=== PATIENT | male | born 1935 | race Two or more races ===

== ENCOUNTER 2018-03-26 19:43 | Inpatient (IN) | payer MEDICARE, OTHER ==
[~2018-03-26] VITALS: Ht 167.6 cm; Wt 76.7 kg
[~2018-03-26 19:43] MED LIST: ATOR10TA PO; VALS80TA2 PO
--- NOTE | 2018-03-26 20:05 | NUR ---
Note undone in EDM - 03/26/18 at 2028 by KARLA PT COMES FROM HOME, AMBULATED TO ER WITH STABLE GAIT. INDEPENDENT IN ALL FUNCTION GALLERY OR MUSEUM GUIDE. ABLE TO MAKE NEEDS KNOWN. RESPONSIVE TO VERBAL + TACTILE STIMULI. ABLE TO SPEAK IN COMPLETE SENTENCES WITH CLEAR CONCISE SPEECH. AAOX4. PT COMES TO ER W/ C/O HTN STARTING 0900 AND LASTING THROUGHOUT THE DAY, ADDITIONAL C/O DIZZINESS AND NAUSEA. PT'S NEPHEW AT BEDSIDE. PER PT STATEMENT, AT 0900 TODAY, PT STATES HIS BP WAS 150/87 AND HE FELT DIZZY, NAUSEATED, & FATIGUED. PT STATES HE TOOK DIOVAN 80 MG AT 1000. PT DID NOT REASSESS BP UNTIL 1800. PER PT, BP WAS 180/95 AT 1800. PT STATES HE FEELS DIZZY + NAUSEATED AT THIS TIME. RESPIRATIONS EVEN + UNLABORED. PT DENIES SOB/COUGH/CONGESTION. PT DENIES CHEST PAIN. PT ON MONITOR. SA02
[2018-03-26] MEDS ORDERED: ALFU10TA10 PO (20:06)
--- NOTE | 2018-03-26 20:25 | NUR ---
PT COMES FROM HOME, AMBULATED TO ER WITH STABLE GAIT. INDEPENDENT IN ALL FUNCTION [employer]ETING. ABLE TO MAKE NEEDS KNOWN. RESPONSIVE TO VERBAL + TACTILE STIMULI. ABLE TO SPEAK IN COMPLETE SENTENCES WITH CLEAR CONCISE SPEECH. AAOX4. PT COMES TO ER W/ C/O HTN STARTING 0900 AND LASTING THROUGHOUT THE DAY, ADDITIONAL C/O DIZZINESS AND NAUSEA. PT'S NEPHEW AT BEDSIDE. PER PT STATEMENT, AT 0900 TODAY, PT STATES HIS BP WAS 150/87 AND HE FELT DIZZY, NAUSEATED, & FATIGUED. PT STATES HE TOOK DIOVAN 80 MG AT 1000. PT DID NOT REASSESS BP UNTIL 1800. PER PT, BP WAS 180/95 AT 1800. AT THIS TIME, PT TOOK ANOTHER DIOVAN 80MG. PT STATES HE CONTINUES TO FEEL DIZZY + NAUSEATED UPON ARRIVAL TO THE ER. NO EPISODES OF VOMITING PRESENT THROUGHOUT THE DAY. PT COMES INTO ER FOR FURTHER EVALUATION. BP AT ARRIVAL IS 176/77. RESPIRATIONS EVEN + UNLABORED.NO S/S OF SOB/CONGESTION NOTED. PT STATES HE HAS NOT HAD CHEST PAIN/SOB WITH THIS COMPLAINT. PT PLACED ON RADIO ENGINEER WITH NSR NOTED. HR @ 60. NO C/O HEADACHE, VISUAL DISTURBANCE, DIPLOPIA AT THIS TIME. NO DIFFICULTY WITH SPEECH NOTED. NO GI/ DISTRESS. PATIENT PLACED IN BED, WHEELS LOCKED, BED IN LOWEST POSITION. SIDERAILS UP X 2. CALL LIGHT IS WITHIN REACH. ALL PATIENT NEEDS ATTENDED AND MET. VISITOR REMAINS AT BEDSIDE.
[2018-03-26] MEDS ORDERED: IV NORMAL SALINE 1000 ML BAG IV ONE (20:30)
[2018-03-26 20:53] LABS: BASOPHILS % (AUTO) 0.6 % (0.0-2.0); EOSINOPHILS # (AUTO) 0.1 K/uL (0.0-0.7); EOSINOPHILS % (AUTO) 1.3 % (0.0-7.0); HEMATOCRIT 40.3 % (36.7-47.1); HEMOGLOBIN 13.8 g/dL (12.5-16.3); LYMPHOCYTES # (AUTO) 1.1 K/uL (20.0-40.0); LYMPHOCYTES % (AUTO) 21.2 % (20.5-51.5); MEAN CORPUSCULAR HEMOGLOBIN 31.8 uug (23.8-33.4); MEAN CORPUSCULAR HGB CONC 34 g/dL (32.5-36.3); MEAN CORPUSCULAR VOLUME 92.8 fL (73.0-96.2); MONOCYTES # (AUTO) 0.3 K/uL (2.0-10.0); MONOCYTES % (AUTO) 5.8 % (0.0-11.0); NEUTROPHILS # (AUTO) 3.7 K/uL (1.8-8.9); NEUTROPHILS % (AUTO) 71.1 % (38.5-71.5); PLATELET COUNT (AUTO) 154 K/uL (152-348); RED BLOOD CELL COUNT(AUTO) 4.34 MIL/uL (4.06-5.63); WHITE BLOOD COUNT (AUTO) 5.2 K/uL (3.6-10.2)
[2018-03-26 21:00] LABS: CARBON DIOXIDE 26 mmol/L (21-32); CHLORIDE 102 mmol/L (98-107); CREATININE 1.1 mg/dL (0.6-1.3); GLUCOSE 112 mg/dL (74-106); UREA NITROGEN, BLOOD 14 mg/dL (7-18)
[2018-03-26] MEDS ORDERED: SWABABLE VALVE TRANSFER SET EA MC ONE (21:07)
[2018-03-26] MEDS ORDERED: NORMAL SALINE FLUSH 10 ML DISP.SYRIN ONE (21:07)
[2018-03-26] MEDS ORDERED: IOHEXOL 350 100 ML INFUS..BTL ONE (21:07)
--- NOTE | 2018-03-26 21:08 | NUR ---
consent for CT complete, placed in patient chart. patient in bed, no acute distress noted. VSS. Respirations even and unlabored. No c/o chest pain at this time.
[2018-03-26 21:12] LABS: ALANINE AMINOTRANSFERASE 36 U/L (16-63); ALKALINE PHOSPHATASE 83 U/L (50-136); ASPARTATE AMINOTRANSFERASE 28 U/L (15-37); BILIRUBIN,DIRECT 0.1 mg/dL (0.0-0.2); BILIRUBIN,TOTAL 0.5 mg/dL (0.2-1.0); TOTAL PROTEIN, SERUM 6.8 g/dL (6.4-8.2)
--- NOTE | 2018-03-26 21:28 | NUR ---
CALLED CLOSING MANAGER. PT CLEARED FOR CTA. PT RESTING IN BED. RESPIRATIONS EVEN + UNLABORED. NO DISTRESS NOTED.
--- NOTE | 2018-03-26 21:35 | NUR ---
PT TAKEN TO CT. ACCOMPANIED BY TRANSPORTER AND NEPHEW. NO ACUTE DISTRESS
[2018-03-26] MEDS ORDERED: IV NORMAL SALINE 100 ML ONE (21:53)
--- NOTE | 2018-03-26 22:17 | NUR ---
PT BACK FROM CT SCAN AT THIS TIME. NO ACUTE DISTRESS NOTED. PT ON ELEMENTARY READING TUTOR. RESPIRATIONS EVEN + UNLABORED. SA02 96% RA. NEPHEW AT BEDSIDE.
--- NOTE | 2018-03-26 22:25 | NUR ---
Patient ambulated to restroom with stable gait. no acute distress noted. vSS
--- NOTE | 2018-03-26 22:29 | NUR ---
KELLY BAILEY AT BEDSIDE FOR UPDATE.
--- NOTE | 2018-03-26 22:44 | NUR ---
PT PENDING ADMISSION TO TELEMETRY UNIT. PT RESTING COMFORTABLY IN BED. VSS.
--- NOTE | 2018-03-26 23:00 | NUR ---
Belongings list complete and placed in patient chart.
--- NOTE | 2018-03-27 00:09 | NUR ---
ER on phone with Vish Overton NP. Patient admitted to telemetry, Room 214. Dx: Ataxia. Family at bedside aware of patient plan of care. Belongings list complete. VSS.
--- NOTE | 2018-03-27 00:13 | NUR ---
Report given to Karthik LAUREN on telemetry.
[2018-03-27 00:35] VITALS: BP 144/51
[2018-03-27] MEDS ORDERED: ACETAMINOPHEN 325 MG TABLET PO PRN (01:00)
[2018-03-27] MEDS ORDERED: MAGNESIUM HYDROXIDE 30 ML LIQUID UDC PO PRN (01:00)
[2018-03-27] MEDS ORDERED: ONDANSETRON 4 MG/2 ML VIAL IV PRN (01:00)
[2018-03-27] MEDS ORDERED: Z GUARD REMEDY PASTE 57 GM TUBE TOP PRN (01:00)
[2018-03-27] MEDS ORDERED: HYDROCODONE/APAP 5-325MG TABLET PO PRN (01:00)
--- NOTE | 2018-03-27 01:30 | NUR ---
In from E.R via wheelchair, 82 y/o male patient admitted to tele floor Dx. Ataxia & Hypertension. Patient stated he experienced severe dizziness associated w/ nausea yesterday morning. Patient is alert & oriented, no SOB denies chest pain. Farsi speaking but able to understand & speak irish. Initial assessment initiated, vital signs WNL. integration engineer applied- shows sinus vanessa w/ PACs. Assisted to the bathroom, patient still complaining of slight dizziness. Fall precaution observed. Call light provided. Will continue to monitor.
--- NOTE | 2018-03-27 02:24 | NUR ---
No further complaint, patient resting comfortably. Sinus vanessa on the monitor.
[2018-03-27 04:00] VITALS: BP 116/50
[2018-03-27 06:24] LABS: *BILIRUBIN,URIN NEGATIVE (NEGATIVE); *BLOOD, URINE 2+ (NEGATIVE); *CLARITY,URINE CLEAR (CLEAR); *COLOR,URINE YELLOW (YELLOW); *KETONES,URINE NEGATIVE (NEGATIVE); *PROTEIN,URINE NEGATIVE (NEGATIVE); *UROBILINOGEN,URINE 0.2 E.U./dl (NORMAL); LEUKOCYTE ESTERASE ,URINE NEGATIVE (NEGATIVE); NITRITE, URINE NEGATIVE (NEGATIVE); PH,URINE 5.5 (5.0-8.0); UGLUCOSE NEGATIVE (NEGATIVE)
--- NOTE | 2018-03-27 06:28 | NUR ---
BP controlled 116/50. Sinus vanessa on the monitor. Assisted to the bathroom patient voided, urine sample sent to the lab.
[2018-03-27 06:38] LABS: BASOPHILS % (AUTO) 0.3 % (0.0-2.0); EOSINOPHILS # (AUTO) 0.1 K/uL (0.0-0.7); EOSINOPHILS % (AUTO) 1.5 % (0.0-7.0); HEMATOCRIT 40.6 % (36.7-47.1); LYMPHOCYTES # (AUTO) 1.5 K/uL (20.0-40.0); LYMPHOCYTES % (AUTO) 27.4 % (20.5-51.5); MEAN CORPUSCULAR HEMOGLOBIN 32.1 uug (23.8-33.4); MEAN CORPUSCULAR HGB CONC 34 g/dL (32.5-36.3); MEAN CORPUSCULAR VOLUME 93.4 fL (73.0-96.2); MONOCYTES # (AUTO) 0.4 K/uL (2.0-10.0); MONOCYTES % (AUTO) 6.7 % (0.0-11.0); NEUTROPHILS # (AUTO) 3.5 K/uL (1.8-8.9); NEUTROPHILS % (AUTO) 64.1 % (38.5-71.5); PLATELET COUNT (AUTO) 152 K/uL (152-348); RED BLOOD CELL COUNT(AUTO) 4.35 MIL/uL (4.06-5.63); WHITE BLOOD COUNT (AUTO) 5.4 K/uL (3.6-10.2)
[2018-03-27 06:41] LABS: CARBON DIOXIDE 25 mmol/L (21-32); CHLORIDE 105 mmol/L (98-107); CHOLESTEROL 155 mg/dL (<200); GLUCOSE 101 mg/dL (74-106); HDL CHOLESTEROL 57 mg/dL (40-60); MAGNESIUM 1.9 mg/dL (1.8-2.4); TRIGLYCERIDES 53 MG/DL (30-150); UREA NITROGEN, BLOOD 12 mg/dL (7-18)
[2018-03-27 06:46] LABS: *AMPHETAMINE, URINE NEGATIVE (NEGATIVE); *BARBITURATE, URINE NEGATIVE (NEGATIVE); *CANNABINOID, URINE NEGATIVE (NEGATIVE); *COCCAINE, URINE NEGATIVE (NEGATIVE); *OPIATE, URINE NEGATIVE (NEGATIVE); *PHENCYCLIDINE SCREEN,URINE NEGATIVE (NEGATIVE)
[2018-03-27 07:06] LABS: BACTERIA,URINE FEW /HPF (NONE SEEN); SQUAMOUS EPITHELIAL CELL,UR FEW /HPF (NONE SEEN); WBC,URINE 0-3 /HPF (0-3)
[2018-03-27] MEDS ORDERED: VALSARTAN 80 MG TABLET PO SCH (09:00)
[2018-03-27] MEDS ORDERED: ALFUZOSIN HCL 10 MG TAB.SR.24H PO SCH (09:00)
[2018-03-27 11:43] VITALS: BP 116/52
[2018-03-27 14:00] VITALS: BP 127/52
[2018-03-27] MEDS ORDERED: ASPIRIN EC 325 MG TABLET.DR PO SCH (15:45)
[2018-03-27 16:00] VITALS: BP 127/52
--- NOTE | 2018-03-27 18:34 | NUR ---
PT EXPLAINED THE RISKS OF LEAVING AMA. DR. CA NOTIFIED. PT SIGNED AMA FORM AND LEFT WITH ALL BELONGINGS AND VALUABLES.
[2018-03-27] MEDS ORDERED: ATORVASTATIN 10 MG TABLET PO SCH (21:00)
== END 2018-03-27 18:34 | disposition left against medical advice (07) | DRG 93 ==
LOC: ER 19:45 → TELE 03-27 00:21 → MED 03-27 18:30
PROVIDERS: ADMIT Nurse Practitioner Acute Care; ATTEND Internal Medicine
DX: R27.0 Ataxia, unspecified (principal); I67.2 Cerebral atherosclerosis; E78.5 Hyperlipidemia, unspecified; I10 Essential (primary) hypertension; R27.8 Other lack of coordination; R10.32 Left lower quadrant pain; Z98.890 Other specified postprocedural states; Z79.899 Other long term (current) drug therapy; R42 Dizziness and giddiness
CPT/HCPCS: 36415; 70030-TC; 70496; 71045; 80307; 83735; 84100; 84443; 85025; 85730; 93005; 93307; 93880; A4663; J3490; J7030; J8499; Q9967